=== PATIENT | female | born 1970 | race Caucasian/White ===

== ENCOUNTER 2024-05-25 10:10 | Inpatient (IN) | payer MEDICAID, OTHER ==
[~2024-05-25] VITALS: Ht 167.6 cm; Wt 88.9 kg
[2024-05-25 10:49] LABS: BASOPHILS % (AUTO) 0.3 % (0.0-2.0); DIFFERENTIAL COMMENT 1; EOSINOPHILS # (AUTO) 0.1 K/uL (0.0-0.7); EOSINOPHILS % (AUTO) 1.9 % (0.0-7.0); HEMATOCRIT 39.8 % (31.2-41.9); HEMOGLOBIN 13.4 g/dL (10.9-14.3); LYMPHOCYTES # (AUTO) 1.5 K/uL (0.8-4.8); LYMPHOCYTES % (AUTO) 21.2 % (20.5-51.5); MEAN CORPUSCULAR HEMOGLOBIN 30.9 uug (24.7-32.8); MEAN CORPUSCULAR HGB CONC 34 g/dL (32.3-35.6); MEAN CORPUSCULAR VOLUME 91.7 fL (75.5-95.3); MONOCYTES # (AUTO) 0.5 K/uL (0.1-1.30); MONOCYTES % (AUTO) 7.4 % (0.0-11.0); NEUTROPHILS # (AUTO) 4.8 K/uL (1.8-8.9); NEUTROPHILS % (AUTO) 69.2 % (38.5-71.5); PLATELET COUNT (AUTO) 199 K/uL (179-408); RED BLOOD CELL COUNT(AUTO) 4.33 MIL/uL (3.63-4.92); RED CELL DISTRIBUTION WIDTH 13.5 % (12.3-17.7); WHITE BLOOD COUNT (AUTO) 6.9 K/uL (3.8-11.8)
[2024-05-25 10:55] LABS: *BILIRUBIN,URIN NEGATIVE (NEGATIVE); *BLOOD, URINE NEGATIVE (NEGATIVE); *CLARITY,URINE CLEAR (CLEAR); *COLOR,URINE YELLOW (YELLOW); *KETONES,URINE NEGATIVE (NEGATIVE); *PROTEIN,URINE NEGATIVE (NEGATIVE); *UROBILINOGEN,URINE 0.2 E.U./dl (NORMAL); LEUKOCYTE ESTERASE ,URINE NEGATIVE (NEGATIVE); NITRITE, URINE NEGATIVE (NEGATIVE); UGLUCOSE NEGATIVE (NEGATIVE)
[2024-05-25 11:01] LABS: CALCIUM 8.9 mg/dL (8.5-10.1); CREATININE 0.6 mg/dL (0.6-1.3); POTASSIUM 3.9 mmol/L (3.5-5.1)
[2024-05-25 11:01] LABS: *URINE HCG, QUAL NEGATIVE (NEGATIVE)
[2024-05-25 11:06] LABS: *AMPHETAMINE, URINE NEGATIVE (NEGATIVE); *BARBITURATE, URINE NEGATIVE (NEGATIVE); *BENZODIAZEPINE, URINE NEGATIVE (NEGATIVE); *CANNABINOID, URINE NEGATIVE (NEGATIVE); *COCCAINE, URINE NEGATIVE (NEGATIVE); *OPIATE, URINE NEGATIVE (NEGATIVE); *PHENCYCLIDINE SCREEN,URINE NEGATIVE (NEGATIVE); FENTANYL, URINE NEGATIVE (NEGATIVE)
[2024-05-25 11:07] LABS: ALBUMIN 3.9 g/dL (3.4-5.0); BILIRUBIN,DIRECT 0.1 mg/dL (0.0-0.2); BILIRUBIN,TOTAL 0.3 mg/dL (0.2-1.0); TOTAL PROTEIN, SERUM 7.6 g/dL (6.4-8.2)
[2024-05-25 11:14] LABS: THYROID STIMULATING HORMONE 4.115 mIU/mL (0.358-3.740)
[2024-05-25] MEDS: DEXTROSE 50% 50 ML DISP.SYRIN IV ONE (12:15)
[2024-05-25] MEDS: THIAMINE HCL 200 MG/2 ML VIAL IV ONE (12:15)
[2024-05-25] MEDS: IV NORMAL SALINE 1000 ML BAG IV ONE (12:46)
[2024-05-25] MEDS ORDERED: THIAMINE HCL 200 MG/2 ML VIAL ONE (12:49)
[2024-05-25] MEDS: IV D5W 1000ML 1,000 ML IV ONE (13:16)
[2024-05-25 14:45] LABS: CALCIUM 7.9 mg/dL (8.5-10.1); CREATININE 0.5 mg/dL (0.6-1.3)
[2024-05-25] MEDS ORDERED: LORAZEPAM 0.5 MG TABLET PO PRN ×2 (18:00→22:00)
[2024-05-25] MEDS ORDERED: MAGNESIUM HYDROXIDE 30 ML LIQUID UDC PO PRN (18:00)
[2024-05-25] MEDS ORDERED: TEMAZEPAM 7.5 MG CAPSULE PO PRN ×2 (18:00→20:00)
[2024-05-25] MEDS ORDERED: MAG HYDROX/AL HYDROX/SIMETH 30 ML LIQUID UDC PO PRN (18:00)
[2024-05-25 18:33] VITALS: BP 136/84; TEMP 98.2; O2SAT 98
[2024-05-25 20:00] VITALS: BP 132/77; TEMP 97.5; O2SAT 97
[2024-05-25] MEDS ORDERED: LORAZEPAM 1 MG TABLET PO PRN (20:00)
[2024-05-25] MEDS ORDERED: ZOLPIDEM 5 MG TABLET PO PRN ×2 (20:15)
[2024-05-26] MEDS: ACETAMINOPHEN 325 MG TABLET PO PRN (06:04)
[2024-05-26 07:46] VITALS: BP 113/62; TEMP 98; O2SAT 96
[2024-05-26 09:17] LABS: ALBUMIN 3.3 g/dL (3.4-5.0); BILIRUBIN,DIRECT 0.1 mg/dL (0.0-0.2); BILIRUBIN,TOTAL 0.6 mg/dL (0.2-1.0); CALCIUM 8.4 mg/dL (8.5-10.1); CREATININE 0.6 mg/dL (0.6-1.3); POTASSIUM 4.2 mmol/L (3.5-5.1); TOTAL PROTEIN, SERUM 6.6 g/dL (6.4-8.2)
[2024-05-26] MEDS ORDERED: TEMAZEPAM 7.5 MG CAPSULE PO PRN (10:00)
[2024-05-26] MEDS ORDERED: LORAZEPAM 0.5 MG TABLET PO PRN (10:00)
[2024-05-26 15:34] VITALS: BP 120/68; TEMP 98; O2SAT 96
[2024-05-26] MEDS: TRAZODONE 50 MG TABLET PO SCH (20:05)
[2024-05-27 08:04] VITALS: BP 138/81; TEMP 98; O2SAT 98
[2024-05-27] MEDS: MULTIVITAMINS,THERAPEUTIC TABLET PO SCH (09:06)
[2024-05-27] MEDS: SERTRALINE HCL 50 MG TABLET PO SCH (09:07)
[2024-05-27] MEDS: THIAMINE HCL 100 MG TABLET PO SCH (09:07)
[2024-05-27 16:01] VITALS: BP 129/82; TEMP 97.6; O2SAT 98
[2024-05-27 19:40] VITALS: BP 130/78; TEMP 98; O2SAT 96
[2024-05-28 08:02] VITALS: BP 140/84; TEMP 98; O2SAT 100
== END 2024-05-28 15:30 | disposition home or self-care (01) | DRG 751 ==
LOC: ER 10:10 → GPS 17:05
PROVIDERS: ADMIT Psychiatry & Neurology Psychiatry; ATTEND Student in an Organized Health Care Education/Training Program
DX: F33.3 Major depressive disorder, recurrent, severe with psychotic symptoms (principal); E44.1 Mild protein-calorie malnutrition; E87.0 Hyperosmolality and hypernatremia; F10.129 Alcohol abuse with intoxication, unspecified; Z59.02 Unsheltered homelessness; E86.0 Dehydration; Y90.8 Blood alcohol level of 240 mg/100 ml or more
CPT/HCPCS: 36415; 84443; 84703; 85025; G0480; J3411; J7040; J7042